=== PATIENT | female | born 1965 | race Caucasian/White ===

== ENCOUNTER → 2016-12-06 | Outpatient (CLI) | payer OTHER ==
[~2016-12-06] MED LIST: ADVIL200 MG PO; ANIMAL CHEWS1 EACH PO; CELECOXIB200 MG PO; CYCLOBENZAPRINE10 MG PO; ENDOCET 5-3251 EACH PO; GLEEVEC400 MG PO; GLUCOPHAGE500 MG PO; HYDROCODON-ACE1 EAC7 PO; METFORMIN HCL500 M1 PO; MOBIC7.5 MG PO
== END | disposition home or self-care (01) ==
LOC: CDC 12:54
DX: E66.01 Morbid (severe) obesity due to excess calories (principal)
CPT/HCPCS: 93000

== ENCOUNTER → 2016-12-28 | Outpatient (CLI) | payer OTHER | END | disposition home or self-care (01) | LOC: EKG 13:00 | DX: R00.2 Palpitations (principal); R94.31 Abnormal electrocardiogram [ECG] [EKG] | CPT/HCPCS: 93306 ==

== ENCOUNTER 2017-01-23 22:08 | Inpatient (IN) | payer OTHER ==
[~2017-01-23] VITALS: Ht 180.3 cm; Wt 146.6 kg
[~2017-01-23 22:08] MED LIST changes: +BIOTIN PO; +BIOTIN10000 MC1 PO; +CITRACAL PO; +DAILY VALUE1 EACH PO; +VITAMIN B COMP1 EACH PO
[2017-01-24 11:16] VITALS: BP 164/73
[2017-01-24 12:28] LABS: POINT-OF-CARE METER ID UU13113694
[2017-01-24 14:37] LABS: POINT-OF-CARE METER ID UU13113675
[2017-01-24 15:37] VITALS: BP 180/81
[2017-01-24 17:18] LABS: POINT-OF-CARE METER ID UU14208750; POINT-OF-CARE USER ID PUTDRM
[2017-01-24 17:52] VITALS: BP 156/80
[2017-01-24 19:27] VITALS: BP 178/90
[2017-01-24 23:18] VITALS: BP 160/82
[2017-01-24 23:55] LABS: POINT-OF-CARE METER ID UU14208750
[2017-01-25 03:35] VITALS: BP 148/77
[2017-01-25 05:55] LABS: POINT-OF-CARE METER ID UU14208750
[2017-01-25 06:38] LABS: HEMATOCRIT 37.7 % (36.0-46.0); MCH 30.7 PG (29.0-34.0); MCHC 33.2 G/DL (30.0-36.0); MCV 92.6 FL (83-99); MEAN PLAT.VOLUME 10.9 uM^3 (9.5-12.4); PLATELET COUNT 229 K/uL (156-360); RBC DIS.WIDTH-CV 12.7 % (11.8-14.6); RBC DIS.WIDTH-SD 43.7 % (39-53); RED BLOOD COUNT 4.07 M/uL (3.80-5.20); WHITE BLOOD COUNT 11.6 K/uL (4.1-10.2)
[2017-01-25 07:05] LABS: ANION GAP 6 MEQ/L (2-14); CHLORIDE 101 MEQ/L (99-109); GFR ESTIMATE (CALCULATED) > 59 mL/min/; GLUCOSE 160 mg/dL (70-99); MAGNESIUM 1.7 mg/dl (1.3-2.7); POTASSIUM 4.2 MEQ/L (3.7-5.4); SAMPLE HEMOLYSIS CHECK 0; SAMPLE ICTERIC CHECK 0; SAMPLE LIPEMIA CHECK 0; SODIUM 136 MEQ/L (136-147); UREA NITROGEN (BUN) 13 mg/dL (9-23)
[2017-01-25 07:30] VITALS: BP 160/80
[2017-01-25 11:28] VITALS: BP 150/80
[2017-01-25 11:32] LABS: POINT-OF-CARE METER ID UU14208750
== END 2017-01-25 17:48 | disposition home or self-care (01) | DRG 620 ==
LOC: ENRESERV 22:08 → SDC 01-24 08:21 → EDSTATUS 01-24 08:21 → 2SOUTH 01-24 08:22 → ENRESERV 01-24 14:14 → 2EASTP 01-24 15:26
PROVIDERS: Surgery
PROC: 0DB64Z3 Excision of Stomach, Percutaneous Endoscopic Approach, Vertical (ICD-10-PCS; principal; 2017-01-24)
DX: E66.01 Morbid (severe) obesity due to excess calories (principal); C92.10 Chronic myeloid leukemia, BCR/ABL-positive, not having achieved remission; Z68.42 Body mass index [BMI] 45.0-49.9, adult; E11.9 Type 2 diabetes mellitus without complications; M12.9 Arthropathy, unspecified
CPT/HCPCS: 80048; 82948; 83735; 84100; 85027; C9113; J0131; J0330; J1100; J1170; J1580; J1644; J1650; J1815; J1885; J2405; J2710; J2765; J3010; J3480; J7050; J7120; S0020

== ENCOUNTER 2017-04-28 11:31 | Emergency (ER) | payer OTHER ==
[~2017-04-28] VITALS: Ht 182.9 cm; Wt 128.0 kg
[2017-04-28 14:03] VITALS: BP 138/66
== END 2017-04-28 14:08 | disposition home or self-care (01) ==
LOC: EME 11:31
DX: S90.811A Abrasion, right foot, initial encounter (principal); S90.31XA Contusion of right foot, initial encounter; S80.02XA Contusion of left knee, initial encounter; S90.812A Abrasion, left foot, initial encounter; W10.8XXA Fall (on) (from) other stairs and steps, initial encounter; Y93.11 Activity, swimming; R26.2 Difficulty in walking, not elsewhere classified; R20.0 Anesthesia of skin; Z98.84 Bariatric surgery status; Z79.84 Long term (current) use of oral hypoglycemic drugs; Z88.1 Allergy status to other antibiotic agents; Z88.7 Allergy status to serum and vaccine
CPT/HCPCS: 73564; 73630; 99281; 99283